=== PATIENT | female | born 1975 | race Caucasian/White ===

== ENCOUNTER 2016-12-11 07:02 | Day surgery (SDC) | payer BC ==
[~2016-12-11 07:02] MED LIST: BUPIVACAINE HCL/PF 0.5% (5MG/ML) 10 ML VIAL IJ ONE
[2016-12-11 07:15] VITALS: BMI 42.2
[2016-12-11] MEDS ORDERED: ONDANSETRON 4 MG/2 ML VIAL IVPUSH ONE (07:40)
[2016-12-11] MEDS ORDERED: SODIUM CHLORIDE 1,000 ML IV STA ×2 (07:40→09:50)
[2016-12-11] MEDS ORDERED: morphine CARPU-JECT 2 MG/1 ML DISP.SYRIN IVPUSH ONE ×2 (07:40→09:49)
[2016-12-11] MEDS ORDERED: morphine CARPU-JECT 4 MG/1 ML DISP.SYRIN ONE ×2 (07:43→09:57)
[2016-12-11] MEDS ORDERED: ONDANSETRON 4 MG/2 ML VIAL ONE (07:43)
--- NOTE | 2016-12-11 07:46 | PDOC ---
History of Present Illness - General Chief Complaint: Pain, Acute Stated Complaint: ABD PAIN Time Seen by Provider: 12/11/16 07:27 History Source: Patient Exam Limitations: No Limitations - History of Present Illness Travel History: No Initial Comments: 12/11/16 07:43 41-year-old female with history of gallstones presents the ED with complaints of right upper quadrant pain since last night although it has been intermittent for the past week now associated nausea and vomiting and has worsened in severity since this morning. Patient states last attack in April of last year but since symptoms did not return she did not follow-up with referred surgeon as recommended. Patient denies change in urine pattern, diarrhea, fever, chills , cough or chest pain Timing/Duration: reports: constant, getting worse Quality: reports: moderate, cramping, sharpness Abdominal Pain Onset Location: reports: RUQ Pain Radiation: reports: chest, back Activities at Onset: reports: none Aggravating Factors: improves with: Eating Alleviating Factors: improves with: None Past History - Past Medical History Allergies/Adverse Reactions: Allergies Allergy/AdvReac Type Severity Reaction Status Date / Time No Known Allergies Allergy Verified 12/11/16 07:09 Home Medications: Ambulatory Orders NK [No Known Home Medication] 12/11/16 GI Disorders: Yes (gallstones) - Reproductive History LMP Normal: Yes Is Patient Now?: No - Immunization History Immunization Up to Date: Yes - Psycho/Social/Smoking Cessation Hx Anxiety: No Suicidal Ideation: No Smoking History: Never smoked Hx Alcohol Use: No Drug/Substance Use Hx: No Substance Use Type: None Patient Lives Alone: No Lives with/in: spouse/SO Abd/GI Specific PMHX - Complaint Specific PMHX Gall Bladder Disease: Yes Review of Systems - Review of Systems Able to Perform ROS?: Yes Constitutional: No: Symptoms Reported HEENTM: No: Symptoms Reported Respiratory: No: Symptoms reported Cardiac (ROS): No: Symptoms Reported ABD/GI: Yes: Nausea, Vomiting, Abdominal cramping : No: Symptoms Reported Integumentary: No: Symptoms Reported Neurological: No: Symptoms reported *Physical Exam - Vital Signs Last Vital Signs Temp Pulse Resp BP Pulse Ox 98 F 64 19 139/70 98 12/11/16 07:10 12/11/16 07:10 12/11/16 07:10 12/11/16 07:10 12/11/16 07:10 - Physical Exam General Appearance: Yes: Nourished, Appropriately Dressed. No: Apparent Distress HEENT: negative: Pale Conjunctivae Neck: positive: Normal Thyroid Respiratory/Chest: positive: Lungs Clear, Normal Breath Sounds. negative: Respiratory Distress, Accessory Muscle Use Cardiovascular: positive: Regular Rhythm, Regular Rate. negative: Murmur Gastrointestinal/Abdominal: positive: Normal Bowel Sounds, Soft, Guarding ( right upper quadrant), Tenderness (right upper quadrant. Positive [place]. ). negative: Distended Musculoskeletal: negative: CVA Tenderness Extremity: positive: Normal Capillary Refill Integumentary: positive: Normal Color, Warm, Moist. negative: Rash Neurologic: positive: Motor Strength 5/5 (ambulatory) ED Treatment Course - LABORATORY CBC & Chemistry Diagram: 12/11/16 08:03 12/11/16 08:03 - RADIOLOGY Radiology Studies Ordered: Category Date Time Status GALLBLADDER US [US] Stat Ultrasound 12/11/16 07:40 Ordered Medical Decision Making - Medical Decision Making 12/11/16 07:46 Patient's history of gallstones presented with right upper quadrant pain associated nausea and vomiting. Patient on exam did have positive Jc sign suggestive of gallstone/cholecystitis. Patient ordered for labs including urine analgesics, antiemetics and ultrasound. 12/11/16 09:22 Laboratory Tests 12/11/16 12/11/16 08:03 08:03 WBC 9.4 D Hgb 11.9 Hct 36.3 Neutrophils % 79.3 Sodium 137 Potassium 4.7 Chloride 102 Carbon Dioxide 27 Anion Gap 8 BUN 17 Random Glucose 130 H Magnesium 2.2 Total Bilirubin 0.3 AST 19 ALT 30 Lipase 120 Ultrasound shows no evidence of intra-or extrahepatic biliary duct dilatation. The gallbladder is partially contracted it does contain biliary sludge with at least 2 calculi. The radiologist is recommending of acute cholecystitis is clinically suspected to follow-up with the hida scan. Case will be discussed with Dr. Lang 12/11/16 09:[address] Lang and states to speak with patient's PCP and if patient is not to be admitted the PCP he will accept the case. He also recommends allowing patient to rest today and will likely perform surgery tomorrow. Patient made aware plan and agrees for admission. patient is requesting more pain control so I ordered an additional 4 mg of morphine along with another liter of normal saline. 12/11/16 10:43 Patient states last meal was before 12 midnight yesterday. Case discussed with Dr. Coni Aldridge who is covering for patient's private care physician accepted patient. Dr. Lang will consult shortly. Patient is comfortable with second dose of morphine. Preop labs ordered Including nothing by mouth status *DC/Admit/Observation/Transfer Diagnosis at time of Disposition: Multiple gallstones, Intractable abdominal pain Nausea and vomiting Qualifiers: Vomiting type: bilious vomiting Qualified Code(s): R11.14 - Bilious vomiting - Discharge Dispostion Admit: Yes
[2016-12-11 08:20] LABS: BASOPHIL 0.7 % (0-2.0); EOSINOPHIL 0.3 % (0-4.5); MCH 26.7 pg (25.7-33.7); MCHC 32.8 g/dl (32.0-36.0); MEAN CELL VOLUME 81.4 fl (80-96); NEUTROPHILS 79.3 % (42.8-82.8); PLATELET COUNT 233 K/MM3 (134-434); RDW 17.7 % (11.6-15.6); WHITE BLOOD COUNT 9.4 K/mm3 (4.0-10.0)
[2016-12-11 08:41] LABS: ALBUMIN 3.5 g/dl (3.4-5.0); ALK PHOS 90 U/L (45-117); ANION GAP 8 (8-16); BILIRUBIN,TOTAL 0.3 mg/dL (0.2-1.0); CALCIUM 8.9 mg/dL (8.5-10.1); CO2 27 mmol/L (21-32); CREATININE 0.7 mg/dL (0.55-1.02); GLUCOSE,RANDOM 130 mg/dL (74-106); MAGNESIUM 2.2 mg/dL (1.8-2.4); SGOT/AST 19 U/L (15-37); SGPT/ALT 30 U/L (12-78); TOT PROT 7.6 g/dl (6.4-8.2)
[2016-12-11 09:44] LABS: URINE APPEARANCE TURBID; URINE BILIRUBIN NEGATIVE (NEGATIVE); URINE COLOR YELLOW; URINE GLUCOSE (UA) NEGATIVE (NEGATIVE); URINE KETONE NEGATIVE (NEGATIVE); URINE NITRITE NEGATIVE (NEGATIVE); URINE UROBILINOGEN NEGATIVE E.U./dl (0.2-1.0)
[2016-12-11 09:45] LABS: URINE BLOOD 2+ (NEGATIVE); URINE LEUK ESTERASE 1+ (NEGATIVE); URINE PROTEIN 1+ (NEGATIVE)
[2016-12-11 09:57] LABS: URINE MUCUS RARE; URINE RBC 28 /hpf (0-3); URINE WBC 9 /hpf (3-5)
[2016-12-11] MEDS ORDERED: HYDROmorphone HCL CARPU-JECT 2 MG/1 ML DISP.SYRIN IVPUSH ONE (12:10)
[2016-12-11 12:11] LABS: INR 1.04 (0.82-1.09); PROTHROMBIN TIME (PATIENT) 11.4 SEC (9.98-11.88)
[2016-12-11] MEDS ORDERED: HYDROmorphone HCL CARPU-JECT 1 MG/1 ML DISP.SYRIN ONE (12:12)
--- NOTE | 2016-12-11 13:18 | HP ---
Admitting History and Physical - Primary Care Physician PCP: Brandon Honeycutt - Admission Chief Complaint: abd pain History of Present Illness: ER HISTORY - History of Present Illness Travel History: No Initial Comments: 12/11/16 07:43 41-year-old female with history of gallstones presents the ED with complaints of right upper quadrant pain since last night although it has been intermittent for the past week now associated nausea and vomiting and has worsened in severity since this morning. Patient states last attack in April of last year but since symptoms did not return she did not follow-up with referred surgeon as recommended. Patient denies change in urine pattern, diarrhea, fever, chills , cough or chest pain Timing/Duration: reports: constant, getting worse Quality: reports: moderate, cramping, sharpness Abdominal Pain Onset Location: reports: RUQ Pain Radiation: reports: chest, back Activities at Onset: reports: none Aggravating Factors: improves with: Eating Alleviating Factors: improves with: None Pt seen by me in the ER c/o abd pain intermittent for last couple of months now. Spoke with ER [employer] . Pt came to ER today for worsening right upper quadrant pain - sharp - with associated nausea, vomiting. She took Motrin about 2 am today and vomited afterwards. No diarrhea. No fever She has known h/o gallstones and was supposed to see Dr Lang as an outpt but did not. No medical history No surgical history Works in the [employer] Not a smoker , does not drink alcohol History Source: Patient Limitations to Obtaining History: No Limitations - Past Medical History ...LMP: 12/11/16 ...: No - Smoking History Smoking history: Never smoked - Alcohol/Substance Use Hx Alcohol Use: No Home Medications - Allergies Allergies/Adverse Reactions: Allergies Allergy/AdvReac Type Severity Reaction Status Date / Time No Known Allergies Allergy Verified 12/11/16 07:09 - Home Medications Home Medications: Ambulatory Orders NK [No Known Home Medication] 12/11/16 Review of Systems - Review of Systems Constitutional: reports: Loss of Appetite. denies: Chills, Fever Gastrointestinal: reports: Abdominal Pain, Nausea, Vomiting. denies: Constipation, Diarrhea Physical Examination Vital Signs: Vital Signs Temperature 98 F 12/11/16 07:10 Pulse Rate 62 12/11/16 12:19 Respiratory Rate 18 12/11/16 12:19 Blood Pressure 116/65 12/11/16 12:19 O2 Sat by Pulse Oximetry (%) 97 12/11/16 12:19 Constitutional: Yes: No Distress, Calm Cardiovascular: Yes: Regular Rate and Rhythm Respiratory: Yes: CTA Bilaterally Gastrointestinal: Yes: Normal Bowel Sounds, Soft, Abdomen, Obese, Tenderness ( epigastric, right upper quadrant). No: Distention Edema: No Neurological: Yes: Alert, Oriented ...Motor Strength: WNL Psychiatric: Yes: Alert, Oriented Labs: CBC, BMP 12/11/16 08:03 12/11/16 08:03 Imaging - Results Ultrasound: Report Reviewed (cholelithiasis, fatty liver) EKG: Image Reviewed (Normal sinus rhythm,no ST changes) Problem List - Problems (1) Gallstones Code(s): K80.20 - CALCULUS OF GALLBLADDER W/O CHOLECYSTITIS W/O OBSTRUCTION (2) Intractable abdominal pain Code(s): R10.9 - UNSPECIFIED ABDOMINAL PAIN (3) Nausea & vomiting Code(s): R11.2 - NAUSEA WITH VOMITING, UNSPECIFIED Qualifiers: Vomiting type: bilious vomiting Qualified Code(s): R11.14 - Bilious vomiting (4) Biliary colic Code(s): K80.50 - CALCULUS OF BILE DUCT W/O CHOLANGITIS OR CHOLECYST W/O OBST Assessment/Plan PLAN -- keep NPO -- continue IV fluids -- Start IV Protonix -- Surgeon already called by ER -- possible surgery today -- pain control with dilaudid -- DVT prophylaxis-- Lovenox sc -- Pt is medically cleared to proceed with surgery
[2016-12-11] MEDS ORDERED: ACETAMINOPHEN 1000 MG/100 ML VIAL (NON FORMULARY) IVPB PRN ×2 (13:26→17:25)
[2016-12-11] MEDS ORDERED: HYDROmorphone HCL CARPU-JECT 1 MG/1 ML DISP.SYRIN IVPUSH PRN ×2 (13:26→17:25)
[2016-12-11] MEDS ORDERED: D5-1/2NS+20 MEQ KCL - 1,000 ML IV SCH (13:30)
[2016-12-11] MEDS ORDERED: ceFAZolin SODIUM 1 GM VIAL ONE (13:34)
[2016-12-11] MEDS ORDERED: SODIUM CHLORIDE 0.9% P/F 10 ML VIAL IJ ONE (13:34)
[2016-12-11] MEDS ORDERED: DEXAMETHASONE SOD PHOSPHATE 4 MG/1 ML VIAL ONE (13:34)
[2016-12-11] MEDS ORDERED: KETOROLAC TROMETHAMINE 30 MG/1 ML VIAL ONE (13:34)
[2016-12-11] MEDS ORDERED: PROPOFOL 20 ML ONE (13:35)
[2016-12-11] MEDS ORDERED: ROCURONIUM BROMIDE 50 MG/5 ML VIAL ONE (13:35)
[2016-12-11] MEDS ORDERED: MIDAZOLAM HCL 2 MG/2 ML SINGLE DOSE VIAL ONE (13:35)
--- NOTE | 2016-12-11 13:59 | CONSULT ---
Consult Consult Specialty:: Surgery Reason for Consultation:: Recurrent biliary colic - History of Present Illness Chief Complaint: Abdominal pain History of Present Illness: 41 female presents for RUQ pain x 1-2 days Presented to the ER in the past for similar complaints Diagnosed with biliary colic/acute cholecystitis at that time Cholecystectomy was recommended at that time; however due to social issues the patient wanted to go home Now presents with similar complaints + RUQ pain No fevers/chills Mild nausea - History Source History Provided By: Patient, Medical Record Limitations to Obtaining History: No Limitations - Past Medical History ...LMP: 12/11/16 ...: No - Alcohol/Substance Use Hx Alcohol Use: No - Smoking History Smoking history: Never smoked Home Medications - Allergies Allergies/Adverse Reactions: Allergies Allergy/AdvReac Type Severity Reaction Status Date / Time No Known Allergies Allergy Verified 12/11/16 07:09 - Home Medications Home Medications: Ambulatory Orders NK [No Known Home Medication] 12/11/16 Family Disease History - Family Disease History Family History: Unremarkable Review of Systems - Review of Systems Constitutional: denies: Chills, Fever HENT: reports: No Symptoms Neck: reports: No Symptoms Cardiovascular: denies: Chest Pain Respiratory: denies: Cough Gastrointestinal: reports: Abdominal Pain (RUQ), Nausea. denies: Diarrhea, Vomiting Genitourinary: reports: No Symptoms Neurological: denies: Change in LOC Pain Intensity: 7 Physical Exam Vital Signs: Vital Signs Temperature 98 F 12/11/16 07:10 Pulse Rate 62 12/11/16 12:19 Respiratory Rate 18 12/11/16 12:19 Blood Pressure 116/65 12/11/16 12:19 O2 Sat by Pulse Oximetry (%) 97 12/11/16 12:19 Constitutional: Yes: Calm, Mild Distress Neck: Yes: Supple Cardiovascular: Yes: Regular Rate and Rhythm Respiratory: Yes: CTA Bilaterally Gastrointestinal: Yes: Soft, Abdomen, Obese, Tenderness (RUQ). No: Tenderness, Rebound Extremities: Yes: WNL Neurological: Yes: Alert, Oriented Labs: CBC, BMP 12/11/16 08:03 12/11/16 08:03 Imaging - Results Ultrasound: Report Reviewed, Image Reviewed Problem List - Problems (1) Biliary colic Code(s): K80.50 - CALCULUS OF BILE DUCT W/O CHOLANGITIS OR CHOLECYST W/O OBST (2) Recurrent biliary colic Code(s): K80.20 - CALCULUS OF GALLBLADDER W/O CHOLECYSTITIS W/O OBSTRUCTION Assessment/Plan 41 female with recurrent biliary colic + Significant RUQ pain NPO IV fluids For laparoscopic possible open cholecystectomy Risks and benefits explained Understands and agrees
[2016-12-11] MEDS ORDERED: ceFAZolin SODIUM 1 GM VIAL IVPB ONE (14:14)
--- NOTE | 2016-12-11 15:05 | EKG ---
Test Reason : Blood Pressure : / mmHG Vent. Rate : 057 BPM Atrial Rate : 057 BPM P-R Int : 130 ms QRS Dur : 092 ms QT Int : 442 ms P-R-T Axes : -01 006 002 degrees QTc Int : 430 ms SINUS BRADYCARDIA NONSPECIFIC T WAVE ABNORMALITY NO PREVIOUS ECGS AVAILABLE Confirmed by ELIZABETH MARQUEZ MD ([id number]) on 12/11/2016 3:04:56 PM Referred By: Confirmed By:ELIZABETH MARQUEZ MD
[2016-12-11] MEDS ORDERED: BUPIVACAINE HCL/PF 0.5% (5MG/ML) 10 ML VIAL IJ ONE (15:50)
[2016-12-11] MEDS ORDERED: ONDANSETRON 4 MG/2 ML VIAL IVPB PRN (16:13)
[2016-12-11] MEDS ORDERED: OXYCODONE/APAP 5/325MG COMBO TABLET PO PRN (16:13)
[2016-12-11] MEDS ORDERED: oxyCODONE HCL 5 MG TABLET PO PRN (16:19)
[2016-12-11] MEDS ORDERED: ACETAMINOPHEN 325 MG TABLET (FP) PO PRN (16:19)
--- NOTE | 2016-12-11 16:23 | OP ---
Operative Note - Note: Operative Date: 12/11/16 Pre-Operative Diagnosis: Recurrent biliary colic Operation: Laparoscopic cholecystectomy Findings: Distended, inflamed gallbladder Large gallstone Post-Operative Diagnosis: Other (Recurrent biliary colic, acute cholecystitis) Surgeon: Quirino Lang Nursing Home Manager: Rhoda Crowder Anesthesia: General Specimens Removed: Gallbladder Estimated Blood Loss (mls): 300 Operative Report Dictated: Yes
[2016-12-11] MEDS ORDERED: LACTATED RINGERS SOLUTION 1,000 ML IV SCH (16:30)
--- NOTE | 2016-12-11 16:43 | SURG ---
Surgery Morning News Producer Note Morning News Producer: Rhoda Crowder PA-C Date of Service: 12/11/16 Diagnosis: Recurrent biliary colic Procedure: Laparoscopic cholecystectomy I was present for the entirety of the operative procedure. For further detail, please refer to operative report. Visit type - Case Type Case Type: ED Admission - New patient This patient is new to me today: Yes Date on this admission: 12/11/16
[2016-12-11] MEDS ORDERED: HYDROmorphone HCL CARPU-JECT 2 MG/1 ML DISP.SYRIN ONE (16:58)
[2016-12-11] MEDS: HYDROmorphone HCL CARPU-JECT 1 MG/1 ML DISP.SYRIN IVPUSH PRN ×4 (17:00→18:20)
[2016-12-11 17:26] LABS: MCH 26.2 pg (25.7-33.7); MCHC 32.3 g/dl (32.0-36.0); PLATELET COUNT 261 K/MM3 (134-434); RDW 17.6 % (11.6-15.6); WHITE BLOOD COUNT 16.5 K/mm3 (4.0-10.0)
[2016-12-11 18:02] LABS: ALBUMIN 3.4 g/dl (3.4-5.0); ANION GAP 9 (8-16); BILIRUBIN,TOTAL 0.3 mg/dL (0.2-1.0); CALCIUM 8.2 mg/dL (8.5-10.1); CO2 26 mmol/L (21-32); CREATININE 0.8 mg/dL (0.55-1.02); GLUCOSE,RANDOM 149 mg/dL (74-106); SGOT/AST 101 U/L (15-37); SGPT/ALT 80 U/L (12-78); TOT PROT 7.4 g/dl (6.4-8.2)
[2016-12-11 18:03] LABS: ALK PHOS 86 U/L (45-117)
[2016-12-11 18:45] LABS: PLATELET ESTIMATE ADEQUATE (NORMAL)
[2016-12-11] MEDS: D5-1/2NS+20 MEQ KCL - 1,000 ML IV SCH (20:00)
[2016-12-11] MEDS: CEFAZOLIN 2 GM/D5W 50 ML IVPB SCH (20:28)
[2016-12-11] MEDS: HEPARIN NA (PORCINE) 5,000 UNITS/ML 1ML VIAL SQ SCH (21:10)
[2016-12-12] MEDS: CEFAZOLIN 2 GM/D5W 50 ML IVPB SCH ×2 (02:43→11:39)
[2016-12-12] MEDS: D5-1/2NS+20 MEQ KCL - 1,000 ML IV SCH (05:02)
[2016-12-12] MEDS: HEPARIN NA (PORCINE) 5,000 UNITS/ML 1ML VIAL SQ SCH (06:03)
[2016-12-12 07:45] LABS: BASOPHIL 0.4 % (0-2.0); EOSINOPHIL 0.1 % (0-4.5); MCH 26.7 pg (25.7-33.7); MCHC 32.7 g/dl (32.0-36.0); MEAN CELL VOLUME 81.5 fl (80-96); MEAN PLT VOLUME 8.8 fl (7.5-11.1); NEUTROPHILS 81.7 % (42.8-82.8); PLATELET COUNT 211 K/MM3 (134-434); RDW 17.3 % (11.6-15.6); WHITE BLOOD COUNT 12.7 K/mm3 (4.0-10.0)
[2016-12-12 08:21] LABS: ALBUMIN 2.9 g/dl (3.4-5.0); ANION GAP 8 (8-16); CALCIUM 8.4 mg/dL (8.5-10.1); CO2 26 mmol/L (21-32); CREATININE 0.6 mg/dL (0.55-1.02); GLUCOSE,RANDOM 119 mg/dL (74-106); SGOT/AST 56 U/L (15-37); SGPT/ALT 67 U/L (12-78)
[2016-12-12 08:22] LABS: ALK PHOS 76 U/L (45-117); BILIRUBIN,TOTAL 0.3 mg/dL (0.2-1.0); TOT PROT 6.3 g/dl (6.4-8.2)
[2016-12-12] MEDS ORDERED: PANTOPRAZOLE SODIUM 40MG/100 ML IVPB SCH (10:00)
[2016-12-12] MEDS ORDERED: PANTOPRAZOLE SODIUM 100 ML IVPB SCH (10:00)
--- NOTE | 2016-12-12 11:37 | PN ---
[id number] List Current Medications: Active Medications Acetaminophen (Tylenol -) 650 mg PO Q4H PRN PRN Reason: PAIN LEVEL 6-10 Stop: 12/14/16 16:18 Heparin Sodium (Porcine) (Heparin -) 5,000 unit SQ TID [facility] Last Admin: 12/12/16 06:03 Dose: 5,000 unit Hydromorphone HCl (Dilaudid Injection -) 1 mg IVPUSH Q4H PRN PRN Reason: PAIN Cefazolin Sodium/Dextrose (Ancef 2 Gm Premixed Ivpb -) 50 mls @ 100 mls/hr IVPB Q8H-IV [facility] Stop: 12/12/16 18:00 Last Admin: 12/12/16 02:43 Dose: 100 mls/hr Pantoprazole Sodium (Protonix 40mg Ivpb (Pre-Docked)) 100 mls @ 200 mls/hr IVPB DAILY [facility] Last Admin: 12/12/16 09:09 Dose: 200 mls/hr Potassium Chloride/Dextrose/Sod Cl (D5-1/2ns+20 Meq Kcl -) 1,000 mls @ 100 mls/ hr IV ASDIR [facility] Last Admin: 12/12/16 05:02 Dose: 100 mls/hr Ondansetron HCl (Zofran Injection) 4 mg IVPB Q4H PRN PRN Reason: NAUSEA AND/OR VOMITING Oxycodone HCl (Roxicodone -) 10 mg PO Q4H PRN PRN Reason: PAIN LEVEL 6-10 - Objective Vital Signs: Vital Signs Temperature 98.3 F 12/12/16 06:30 Pulse Rate 66 12/12/16 06:30 Respiratory Rate 18 12/12/16 06:30 Blood Pressure 113/60 12/12/16 06:30 O2 Sat by Pulse Oximetry (%) 100 12/11/16 20:30 Constitutional: Yes: No Distress Cardiovascular: Yes: Regular Rate and Rhythm Respiratory: Yes: CTA Bilaterally Gastrointestinal: Yes: Normal Bowel Sounds, Soft. No: Distention, Tenderness Labs: CBC, BMP 12/12/16 06:50 12/12/16 06:50 INR, PTT INR 1.04 (0.82-1.09) 12/11/16 10:46 Problem List - Problems (1) Gallstones Code(s): K80.20 - CALCULUS OF GALLBLADDER W/O CHOLECYSTITIS W/O OBSTRUCTION (2) Intractable abdominal pain Code(s): R10.9 - UNSPECIFIED ABDOMINAL PAIN (3) Nausea & vomiting Code(s): R11.2 - NAUSEA WITH VOMITING, UNSPECIFIED Qualifiers: Vomiting type: bilious vomiting Qualified Code(s): R11.14 - Bilious vomiting (4) Biliary colic Code(s): K80.50 - CALCULUS OF BILE DUCT W/O CHOLANGITIS OR CHOLECYST W/O OBST
--- NOTE | 2016-12-12 11:55 | PN ---
Progress Note (short form) - Note Progress Note: POD 1 Laparoscopic cholecystectomy Pain controlled with medication On diet AVSS Abd soft WBC 12 H/H stable Bilirubin WNL Doing well Can discharge home Follow up in 2 weeks Problem List - Problems (1) Biliary colic Code(s): K80.50 - CALCULUS OF BILE DUCT W/O CHOLANGITIS OR CHOLECYST W/O OBST (2) Recurrent biliary colic Code(s): K80.20 - CALCULUS OF GALLBLADDER W/O CHOLECYSTITIS W/O OBSTRUCTION
--- NOTE | 2016-12-12 12:09 | OP ---
DATE OF OPERATION: 12/11/2016 SURGEON: Quirino Lang MD PHOTOGRAPH EDITOR: DINA Baer PREOPERATIVE DIAGNOSES: Recurrent biliary colic. POSTOPERATIVE DIAGNOSES: Recurrent biliary colic and acute cholecystitis. SPECIMEN: Gallbladder. PROCEDURE: Laparoscopic cholecystectomy. DRAINS: None. ANESTHESIA: GET. REASON FOR PROCEDURE: This is a 41-year-old female who was originally seen in the ER in April of 2016 for right upper quadrant pain. She was diagnosed with acute cholecystitis at that time. However, due to social issues, she did not proceed with a cholecystectomy and went home. She presents to the emergency room on this admission for right upper quadrant pain x1-2 days. Ultrasound demonstrated cholelithiasis, and she had significant right upper quadrant pain on examination. Because of this, she was consented for a laparoscopic possible open cholecystectomy. The risks and benefits of the procedure were explained. These included bleeding, infection, hernia, TN, DVT, PE, injury to surrounding abdominal structures including the small bowel, duodenum, stomach, colon, liver, bile ducts, vessel injury, nerve injury, retained stone, bile leak, and as some of the complications. She understood and signed informed consent. DESCRIPTION OF PROCEDURE: Patient was placed supine on the operating room table. She underwent general endotracheal intubation. The abdomen was prepped and draped in the usual sterile fashion. Time-out was performed. Of note, it was noted before prepping and draping, there were multiple vesicles on her skin that she had presented with through the ER. These were not opened and appeared clean at the time. However, they were noted and made sure to be adequately prepped. A time-out was performed. A 5-mm incision was made through the umbilicus after Westley clamps were used to grasp the umbilicus. Entrance into the abdominal cavity was obtained under a 5-mm optical trocar under direct visualization with laparoscope. Pneumoperitoneum was established. Immediately on inspection of the abdominal cavity, it was noted that the gallbladder was distended and there was dense inflammatory tissue around it. Two 5-mm trocars were then placed in the right upper quadrant. A 12-mm trocar was placed in the subxiphoid region. The patient was placed in steep reverse Trendelenburg [id number] position. The gallbladder was grasped and again noted to be very distended and inflamed. Needle decompression was performed suctioning bile from the gallbladder. The gallbladder was then retracted cephalad and laterally. Dense inflammatory tissue was noted, and very carefully, the peritoneum was opened using hook electrocautery. The cystic duct followed by the cystic artery was circumferentially dissected. Of note, there was noted to be an accessory duct coming from the liver to the gallbladder, which was clipped and divided. The cystic duct followed by the cystic artery were clipped and transected. The gallbladder was removed off the liver bed using electrocautery. Hemostasis was achieved using hook electrocautery. Copious irrigation and suction was performed until clear. Gallbladder fossa was noted to be hemostatic. A large Surgicel dressing was placed within the gallbladder fossa to aid with hemostasis. The gallbladder was placed in an EndoCatch bag and removed from the 12-mm subxiphoid trocar site. Again, hemostasis was noted, and again copious irrigation and suction was performed until clear. The fascia at the subxiphoid trocar site was closed using a 0 Vicryl suture with a Edsno-Praveen device. This was secured. Again, hemostasis was noted at this trocar site. Pneumoperitoneum was then desufflated, and all trocars were removed. Marcaine was injected at all sites. A 3-0 Vicryl suture was used to close the deep subcutaneous tissue at the 12-mm trocar site. All skin incisions were closed using 4-0 Biosyn after Marcaine was injected. Sterile dressings were applied. The patient tolerated the procedure well and was transferred to the recovery room in stable condition. Fernando WILDE/[id number]
--- NOTE | 2016-12-12 12:22 | DS ---
[id number] Rate 18 12/12/16 06:30 Blood Pressure 113/60 12/12/16 06:30 O2 Sat by Pulse Oximetry (%) 100 12/11/16 20:30 Constitutional: Yes: No Distress, Calm Cardiovascular: Yes: Regular Rate and Rhythm Respiratory: Yes: CTA Bilaterally Gastrointestinal: Yes: Normal Bowel Sounds, Soft, Other (clean surgical wound). No: Distention, Tenderness Edema: No Labs: CBC, BMP 12/12/16 06:50 12/12/16 06:50 Discharge Summary Reason For Visit: MULTIPLE GALLSTONES Current Active Problems Gallstones (Acute) Intractable abdominal pain (Acute) Nausea & vomiting (Acute) Recurrent biliary colic (Acute) Hospital Course: Pt admitted for calculus choloecystitis Seen by Surgeon- Dr Lang Underwent lap cholecystectomy yesterday 12/11/16 she is able to tolerate food no pain or nausea feels well surgical wounds clean stable for dc home and advised to follow up with PMD and surgeon Condition: Good - Instructions Diet, Activity, Other Instructions: Amy Lang M.D. [address] [place] [id number] [place] [address] [place] [address] Robotic, Bariatric and General Surgery Postoperative Instructions for General Surgery Activity: Resume normal everyday activity as tolerated. You may walk and climb stairs without any limitation. We encourage you to walk as often as you can Do not lift anything more than 10 pounds for 8 weeks. At that time, you can return to full activity, including the gym, without limitation. Do not drive a motor vehicle while taking prescribes narcotic pain medication. Wound Care: If you have a bandage in place, leave it on for 3 days. At that time you may remove the outer bandage. If there are strips of tape on the skin after removing the outer bandage, leave them in place. They will fall off by themselves. Do not remove them. If there is clear glue on the skin after removing the outer bandage, leave it in place. Do not pick at it or peel it off. You may shower after taking the outer bandage off, 3 days after your surgery. For male groin hernia patients: you may notice a black and blue discoloration of your testicles. This is normal and should resolve over the next week or two. If this persists, please call the office. Diet: You may continue your regular diet at home. If you have a history of high blood pressure, you should be on a low sodium diet. If you have a history of Diabetes Mellitus, you should be on a diabetic/sugar controlled diet. If you had your gallbladder removed, you should be on a low cholesterol/low fat diet. Medications/Pain Management: You may resume previous medications unless told otherwise. You may take the prescribed narcotic pain medication as needed. If the narcotic medication is not needed for pain control, you may take Tylenol. Avoid all other pain medications including Advil, Ibuprofen, Motrin, Aspirin, Naprosyn, Aleve, Celebrex. Vomiting/Nausea: This may occur if you eat too fast, don't chew, or eat too much. Go back to fluids. If the vomiting or nausea persists, call the office. Constipation/Diarrhea: You may experience a change in bowel habits. Many things affect this, including taking pain medication. If either persist, call the office. Follow up: Call the office at [phone] for an appointment 2 weeks after you surgical procedure. Patient advised to stay home from work till . Referrals: Quirino Lang MD [Staff Physician] - 2 Weeks Brandon Honeycutt MD [Primary Care Provider] - 1 Week Disposition: HOME - Home Medications Comprehensive Discharge Medication List: Ambulatory Orders Oxycodone HCl/Acetaminophen [Percocet 5-325 mg Tablet] 1 - 2 tab PO Q6H #28 tab MDD 4 12/11/16
--- NOTE | 2016-12-12 13:55 | PN ---
Progress Note (short form) - Note Progress Note: Anesthesia Post op Pt seen and examined S:alert and awake O: Vital Signs Temperature 98.3 F 12/12/16 06:30 Pulse Rate 66 12/12/16 06:30 Respiratory Rate 18 12/12/16 06:30 Blood Pressure 113/60 12/12/16 06:30 O2 Sat by Pulse Oximetry (%) 100 12/11/16 20:30 CBC, BMP 12/12/16 06:50 12/12/16 06:50 A/P: Current Active Problems Gallstones (Acute) Intractable abdominal pain (Acute) Nausea & vomiting (Acute) Recurrent biliary colic (Acute) s/p lap mariajose Doing well post op Continue current care Demetrio Lara MD
[2016-12-12 14:58] VITALS: BP 114/54; PULSE 84; TEMP 98.4
--- NOTE | 2016-12-13 16:50 | PATH ---
Surgical Pathology Report Patient Name: JABIER FISHER [facility]. Rec. #: [id number] /Age/Gender: 1975 (Age: 41) / F Account: [id number] Location: AMBULATORY SURG Taken: 12/11/2016 Received: 12/12/2016 Reported: 12/13/2016 Physicians: PHYSICIAN EMERGENCY DEPT Specimen(s) Received GALLBLADDER Clinical History Multiple gallstones/biliary colic Acute cholecystitis Final Diagnosis GALLBLADDER, CHOLECYSTECTOMY: ACUTE AND CHRONIC CHOLECYSTITIS AND CHOLELITHIASIS. Electronically Signed Sung Clemons M.D. Gross Description Received in formalin, labeled "gallbladder," is a 7.4 x 2.7 x 2.5 cm. gallbladder with a 0.2 cm. in length portion of cystic duct attached. The outer surface is rivera-pink and varies from smooth to shaggy. The lumen contains red-brown blood as well as 2 yellow, irregular choleliths measuring 1.5 and 2.0 cm in greatest dimension. The mucosa is brown and focally eroded. The wall of the gallbladder varies from 0.1-0.9 cm. in thickness and is focally edematous. S[employer] sections are submitted in one cassette. 12/12/201612/12/2016
== END 2016-12-12 17:10 | disposition home or self-care (01) ==
LOC: JER 07:02 → JASUSAT 10:45 → J8W 19:49 → JASUSAT 12-12 17:10
PROVIDERS: ATTEND Internal Medicine
PROC: 0FT44ZZ Resection of Gallbladder, Percutaneous Endoscopic Approach (ICD-10-PCS; principal; 2016-12-11 14:00)
DX: K81.0 Acute cholecystitis (principal)
CPT/HCPCS: 36415; 76705-TC; 80053; 81003; 81015; 83690; 83735; 84703; 85025; 85610; 86850; 86900; 86901; 88304-TC; 93005; 93010; 94010; 94760; 99284-25; J1644

== ENCOUNTER 2017-05-28 05:02 | Day surgery (SDC) | payer BC ==
[2017-05-27 17:09] VITALS: BMI 39.8
[2017-05-28] MEDS ORDERED: ONDANSETRON 4 MG/2 ML VIAL IVPUSH PRN (10:12)
[2017-05-28] MEDS ORDERED: oxyCODONE HCL 5 MG TABLET PO PRN ×2 (10:12→12:37)
[2017-05-28] MEDS ORDERED: PROMETHAZINE HCL 25 MG/1 ML VIAL IVPUSH PRN (10:12)
[2017-05-28] MEDS ORDERED: LACTATED RINGERS SOLUTION 1,000 ML IV SCH (10:15)
[2017-05-28] MEDS ORDERED: MIDAZOLAM HCL 2 MG/2 ML SINGLE DOSE VIAL ONE ×2 (10:17→10:45)
[2017-05-28] MEDS ORDERED: ROCURONIUM BROMIDE 50 MG/5 ML VIAL ONE (10:30)
--- NOTE | 2017-05-28 10:42 | HP ---
Past Medical History - Primary Care Physician PCP:: Lion Schwarz - Admission Chief Complaint: voluntary sterlization History of Present Illness: 41 yo f requesting tubal ligation, aware risks of procedure and failure risk and risk of ectopic , ulterrnatives discussed History Source: Patient Limitations to Obtaining History: No Limitations - Past Medical History Heme/Onc: Yes: Anemia - Past Surgical History Hx Myomectomy: No Hx Transabdominal Cerclage: No - Smoking History Smoking history: Never smoked - Alcohol/Substance Use Hx Alcohol Use: No - Social History History of Recent Travel: No Home Medications - Allergies Allergies/Adverse Reactions: Allergies Allergy/AdvReac Type Severity Reaction Status Date / Time No Known Allergies Allergy Verified 05/28/17 08:44 - Home Medications Home Medications: Ambulatory Orders NK [No Known Home Medication] 05/28/17 Review of Systems - Review of Systems Constitutional: reports: No Symptoms Eyes: reports: No Symptoms Neck: reports: No Symptoms Respiratory: reports: No Symptoms Gastrointestinal: reports: No Symptoms Genitourinary: reports: No Symptoms Breasts: reports: No Symptoms Reported Integumentary: reports: No Symptoms Neurological: reports: No Symptoms Endocrine: reports: No Symptoms Hematology/Lymphatic: reports: No Symptoms Psychiatric: reports: No Symptoms Physical Exam-FOOD BROKER Vital Signs: Vital Signs Temperature 97.8 F 05/28/17 08:40 Pulse Rate 87 05/28/17 08:40 Respiratory Rate 20 05/28/17 08:40 Blood Pressure 115/52 05/28/17 08:40 O2 Sat by Pulse Oximetry (%) 99 05/28/17 08:40 Constitutional: Yes: Well Nourished, No Distress, Calm Eyes: Yes: WNL, Conjunctiva Clear, EOM Intact HENT: Yes: WNL, Atraumatic, Normocephalic Neck: Yes: WNL, Supple, Trachea Midline Cardiovascular: Yes: WNL, Regular Rate and Rhythm Respiratory: Yes: WNL, Regular, CTA Bilaterally Gastrointestinal: Yes: WNL ...Rectal Exam: Yes: WNL Renal/: Yes: WNL Vaginal Exam: Yes: Normal Cervix: Yes: Normal Uterus: Yes: Normal Adnexa: Not Palpable: Left, Right Breast(s): Yes: WNL Musculoskeletal: Yes: WNL Extremities: Yes: WNL Edema: No Integumentary: Yes: WNL Neurological: Yes: WNL, Alert, Oriented ...Motor Strength: WNL Psychiatric: Yes: WNL, Alert, Oriented Problem List - Problem (1) Sterilization Code(s): Z30.2 - ENCOUNTER FOR STERILIZATION Assessment/Plan pelviscopy bilateral tubal cauterization
[2017-05-28] MEDS ORDERED: ONDANSETRON 4 MG/2 ML VIAL ONE (11:04)
[2017-05-28] MEDS ORDERED: DEXAMETHASONE SOD PHOSPHATE 4 MG/1 ML VIAL ONE (11:04)
[2017-05-28] MEDS ORDERED: LIDOCAINE HCL/PF 2% SDV 5ML VIAL ONE (11:04)
[2017-05-28] MEDS ORDERED: KETOROLAC TROMETHAMINE 30 MG/1 ML VIAL ONE (11:04)
[2017-05-28] MEDS ORDERED: GLYCOPYRROLATE 0.2 MG/1 ML VIAL ONE (11:04)
[2017-05-28] MEDS ORDERED: NEOSTIGMINE METHYLSULFATE 0.5 MG/ML - 10 ML MDV ONE (11:05)
[2017-05-28] MEDS ORDERED: IBUPROFEN 600 MG TABLET (FP) PO PRN (12:37)
[2017-05-28] MEDS ORDERED: IBUPROFEN 800 MG/8 ML IJ IVPB PRN (12:37)
[2017-05-28] MEDS ORDERED: ONDANSETRON 4 MG/2 ML VIAL IVPB PRN (12:37)
[2017-05-28] MEDS ORDERED: ELECTROLYTE-148 SOLN 1,000 ML IV SCH (12:45)
[2017-05-28 12:56] VITALS: TEMP 97.6
[2017-05-28 15:37] VITALS: BP 115/59; PULSE 74
--- NOTE | 2017-05-28 17:57 | OP ---
DATE OF OPERATION: 05/28/2017 PREOPERATIVE DIAGNOSIS: Voluntary sterilization. POSTOPERATIVE DIAGNOSIS: Voluntary sterilization. PROCEDURE: Laparoscopic bilateral tubal cauterization. SURGEON: Lion Schwarz MD ANESTHESIA: General. ANESTHESIOLOGIST: Che Lee MD ESTIMATED BLOOD LOSS: Minimal. DESCRIPTION OF PROCEDURE: Patient was taken to the operating room. Under adequate general anesthesia in dorsal lithotomy position, examination under anesthesia revealed the external genitalia to be normal. Vagina was normal. Cervix was clean, no lesion. Uterus was normal size. Adnexa: No masses were palpable. Then, with a weighted speculum in the vagina, anterior lip of the cervix was grasped with single-tooth tenaculum. Uterine cavity was sounded to 7 cm. Then, Hulka was introduced into the uterine cavity for manipulation, and a Salinas was inserted. Then, a 5-mm trocar inserted through the umbilical area without any difficulty. Then, scope was introduced, and pneumoperitoneum established. Under direct vision, a 5-mm trocar was introduced through the suprapubic area. Then, the right tube was grasped with bipolar cautery, cauterized in 3 portions 2 cm apart. The same procedure with the opposite tube. Visualization of both tubes showed adequate cauterization. There were several small fibroids uterus intramural and subserosal. Both ovaries were normal. No cul-de-sac adhesions. Upper abdomen was checked, was normal. Then, abdomen emptied of all the gases, and the suprapubic and infraumbilical skin incisions were closed with 4-0 Biosyn suture. Patient tolerated the procedure well, left the OR in good condition. LION SCHWARZ M.D. [id number]
== END 2017-05-28 15:46 | disposition home or self-care (01) ==
LOC: JASU-SURG 05:02
PROVIDERS: ATTEND Obstetrics & Gynecology
PROC: 0UL74ZZ Occlusion of Bilateral Fallopian Tubes, Percutaneous Endoscopic Approach (ICD-10-PCS; principal; 2017-05-28 10:00)
DX: Z30.2 Encounter for sterilization (principal)
CPT/HCPCS: 94760

== ENCOUNTER 2018-04-11 16:42 | Day surgery (SDC) | payer BC ==
[2018-04-11 17:12] VITALS: BMI 38.6
[2018-04-11] MEDS ORDERED: IBUPROFEN 800 MG/8 ML IJ IVPB PRN (17:49)
[2018-04-11] MEDS ORDERED: ONDANSETRON 4 MG/2 ML VIAL IVPUSH PRN (17:49)
[2018-04-11] MEDS ORDERED: oxyCODONE HCL 5 MG TABLET PO PRN (17:49)
[2018-04-11] MEDS ORDERED: LACTATED RINGERS SOLUTION 1,000 ML IV SCH (18:00)
[2018-04-11] MEDS ORDERED: LIDOCAINE HCL/PF 2% SDV 5ML VIAL ONE (18:01)
[2018-04-11] MEDS ORDERED: PROPOFOL 20 ML ONE (18:01)
[2018-04-11] MEDS ORDERED: MIDAZOLAM HCL 2 MG/2 ML SINGLE DOSE VIAL ONE (18:01)
[2018-04-11] MEDS ORDERED: KETOROLAC TROMETHAMINE 30 MG/1 ML VIAL ONE (18:01)
--- NOTE | 2018-04-11 19:04 | OP ---
Operative Note - Note: Operative Date: 04/11/18 Pre-Operative Diagnosis: menometrorrhagia, simple endometrial hyperplasia w/o atypia Operation: Hysteroscopy, D&C Findings: Enlarged uterine cavity with disorganized endometrium. No lesions. Post-Operative Diagnosis: Same as Pre-op Surgeon: Fahad Loja Anesthesiologist/TAXICAB DISPATCHER: Nathalie Conroy Anesthesia: General Specimens Removed: Endometrial curettings Estimated Blood Loss (mls): 5 Blood Volume Replaced (mls): 0 Fluid Volume Replaced (mls): 200 Operative Report Dictated: Yes
[2018-04-11 19:34] VITALS: TEMP 98.6
--- NOTE | 2018-04-11 19:34 | OP ---
DATE OF OPERATION: 04/11/2018 PREOPERATIVE DIAGNOSIS: Menometrorrhagia, simple endometrial hyperplasia without atypia, anemia due to acute blood loss. POSTOPERATIVE DIAGNOSIS: Menometrorrhagia, simple endometrial hyperplasia without atypia, anemia due to acute blood loss. PROCEDURE: Hysteroscopy, dilatation and curettage. SURGEON: Gretta Brown MD ANESTHESIOLOGIST: Nathalie Conroy MD ANESTHESIA: General. COMPLICATIONS: None. ESTIMATED BLOOD LOSS: 5 mL INTRAVENOUS FLUIDS: Crystalloids 200 mL. PATHOLOGY: Uterine curettings. FINDINGS: Examination under anesthesia revealed a slightly enlarged, anteverted uterus with no pelvic or adnexal masses. The cervical os was noted to be parous and did not require dilation. Hysteroscopy revealed a slightly enlarged endometrial cavity. The endometrial lining appeared to be disorganized. There were no uterine or endometrial lesions noted. DESCRIPTION OF PROCEDURE: The patient was met preoperatively. Risks, benefits, and alternatives of surgery were discussed in details. All questions were answered. The patient was then brought to the OR with the IV running. She was placed on the surgical table in the supine position. The general anesthesia was achieved without difficulty. The patient was then placed in a dorsal lithotomy position using adjustable Jean-Claude stirrups. The patient was examined under anesthesia with the findings as described above. A timeout procedure was conducted as per standard protocol. The patient was then prepped and draped in the usual sterile fashion. A sterile speculum was introduced inside the vagina with good visualization of the cervix. The cervix was grasped with a single-tooth tenaculum. A 3-mm hysteroscope was introduced inside the uterine cavity with the findings as described above. The hysteroscope was then removed. A sharp uterine curettage was then performed, and the tissue was submitted to Pathology for evaluation. Once this was completed, good hemostasis was noted. Sponge, lap, and instrument counts were correct. Once again, hemostasis was confirmed. The patient was then returned to supine position. The patient was transferred to recovery room in stable condition and awake. GRETTA BROWN M.D. [id number]
[2018-04-11 19:49] VITALS: BP 100/56; PULSE 62
--- NOTE | 2018-04-15 17:23 | PATH ---
Surgical Pathology Report Patient Name: JABIER FISHER [facility]. Rec. #: [id number] /Age/Gender: 1975 (Age: 42) / F Account: [id number] Location: [facility] SURGICAL Taken: 04/11/2018 Received: 04/14/2018 Reported: 04/15/2018 Physicians: Fahad Loja M.D. Specimen(s) Received UTERINE CURETTINGS Clinical History Menometrorrhagia Final Diagnosis UTERINE CURETTINGS, DILATION AND CURETTAGE: FRAGMENTS OF SECRETORY ENDOMETRIUM WITH GLANDULAR AND STROMAL BREAKDOWN CONSISTENT WITH MENSTRUAL ENDOMETRIUM. Electronically Signed Kristie Quinn M.D. Gross Description Received in formalin labeled "uterine curettings" are multiple fragments of pink-rivera hemorrhagic soft tissue measuring 3 x 2.5 x 0.7 cm in aggregate. Entire specimen submitted in one cassette. MELISSA/04/14/2018 xochitl/04/14/2018
== END 2018-04-11 20:20 | disposition home or self-care (01) ==
LOC: JASU-SURG 16:42
PROVIDERS: ATTEND Obstetrics & Gynecology
PROC: 0UDB7ZX Extraction of Endometrium, Via Natural or Artificial Opening, Diagnostic (ICD-10-PCS; principal; 2018-04-11 18:00)
PROC: 0UJD8ZZ Inspection of Uterus and Cervix, Via Natural or Artificial Opening Endoscopic (ICD-10-PCS; 2018-04-11 18:00)
DX: N92.1 Excessive and frequent menstruation with irregular cycle (principal); N85.01 Benign endometrial hyperplasia; D50.0 Iron deficiency anemia secondary to blood loss (chronic)
CPT/HCPCS: 84703; 88305-TC; 94760